=== PATIENT | female | born 2000 | race Two or more races ===

== ENCOUNTER 2020-03-04 21:24 | Emergency (ER) | payer MEDICAID ==
[~2020-03-04] VITALS: Ht 154.9 cm; Wt 121.1 kg
[2020-03-05 02:15] VITALS: BP 160/74
[2020-03-05] MEDS ORDERED: NEOMYCIN-BACITRACIN-POLYM 15GM TOP OINT TOP SCH (02:15)
[2020-03-05] MEDS ORDERED: CLINDAMYCIN 600 MG/4 ML VL IM ONE (02:30)
[2020-03-05] MEDS ORDERED: KETOROLAC TROMETH 60MG/2ML VIAL IM ONE (02:30)
== END 2020-03-05 03:33 | disposition home or self-care (01) ==
LOC: ER 21:24
DX: S61.432A Puncture wound without foreign body of left hand, initial encounter (principal); J45.909 Unspecified asthma, uncomplicated; Z88.0 Allergy status to penicillin; Z88.6 Allergy status to analgesic agent; W54.0XXA Bitten by dog, initial encounter; Y93.89 Activity, other specified; Y92.89 Other specified places as the place of occurrence of the external cause; Y99.8 Other external cause status
CPT/HCPCS: 96372; 99284; J1885; 90471

== ENCOUNTER 2024-05-08 17:35 | Emergency (ER) | payer MEDICAID ==
[~2024-05-08] VITALS: Ht 160 cm; Wt 136.4 kg
--- NOTE | 2024-05-08 20:52 | ED.PDOC ---
History of Present Illness HPI Comments 23 y/o F is BIBA for c/o abdominal pain, nausea, vomiting, diarrhea, and constipation, today. Patient comments on pain being in her RLQ and non- radiating. She denies any additional relevant or pertinent Hx in along with additional symptoms at this time. Chief Complaint: Abdominal Pain Time Seen by MD: 19:50 Reviewed Notes: Nurses Notes, Heel Cementer Notes, Medications, Allergies Allergies: Coded Allergies: Aspirin (Verified Allergy, Unknown, 03/04/20) Penicillins (Verified Allergy, Unknown, 03/04/20) Information Source: Patient, Emergency Med Personnel Mode of Arrival: EMS Past Medical History PAST MEDICAL HISTORY: Asthma Past Medical History (Other): morbid obesity Surgical History: Cholecystectomy, Tonsillectomy Family History Family History: Reviewed,noncontributory to illness, No family hx of Cancer, No family hx of DM, No family hx of Heart carmine, No family hx of HTN, No family hx ofKidney carmine, No family hx of Liver carmine, No family hx of Lung carmine, No family hx of Stroke Social History Smoker: Non-Smoker Alcohol: Denies ETOH Use Drugs: Marijuana Lives In: Home Gastrointestinal: reports: abdominal pain, constipated, diarrhea, nausea, vomiting All Other Systems: Reviewed and Negative (negative unless otherwise stated above or in HPI) Physical Exam General Appearance: Moderate Distress, Obese HEENT: Normal ENT Inspection, Pharynx Normal, TMs Normal Neck: Full Range of Motion, Non-Tender, Normal, Normal Inspection Respiratory: Chest Non-Tender, Lungs Clear, No Accessory Muscle Use, No Respiratory Distress, Normal Breath Sounds Cardiovascular: No Edema, No JVD, No Murmur, No Gallop, Normal Peripheral Pulses, Regular Rate/Rhythm Breast Exam: Deferred Gastrointestinal: No Organomegaly, No Pulsatile Mass, Normal Bowel Sounds, RLQ (tenderness), Soft, Tenderness (RLQ) Genitalia: Deferred Pelvic: Deferred Rectal: Deferred Extremities: No calf tenderness, Normal capillary refill, Normal inspection, Normal range of motion, Non-tender, No pedal edema Musculoskeletal : Apperance: Normal Neurologic: Alert, rehabilitation attendant II-XII nml as Tested, No Motor Deficits, Normal Affect, Normal Mood, No Sensory Deficits Cerebellar Function: Normal Reflexes: Normal Skin: Dry, Normal Color, Warm Lymphatic: No Adenopathy Was a procedure done? Was a procedure done?: No Differential Dx Considerations may include: acute abdomen, gastritis, gastroenteritis, appendicitis, diverticulitis X-Ray, Labs, Meds, VS Vital Signs Date Time Temp Pulse Resp B/P (MAP) Pulse Ox O2 Delivery O2 Flow Rate FiO2 05/08/24 17:41 98.4 98 20 127/84 (98) 99 05/08/24 17:36 96 Lab Test 05/08/24 20:15 Range/Units Urine Color Light-yellow Yellow Urine Clarity Turbid H Clear Urine pH 5.5 5.0-9.0 Urine Specific [place] 1.010 1.001-1.035 Urine Protein Negative Negative Urine Ketones 1+ H Negative Urine Blood Negative Negative /uL Urine Nitrite Negative Negative Urine Bilirubin Negative Negative Urine Urobilinogen Normal Negative mg/dL Urine Leukocyte Esterase Negative Negative /uL Urine RBC 1 0 - 4 /hpf Urine WBC 8 0 - 5 /hpf Urine Squamous Epithelial Cells Few <5 /hpf Urine Bacteria Mod H None Seen /hpf Urine Mucus Few None Seen Urine Glucose Normal Normal mg/dL Urine Test Negative Negative Is normal. Urine is normal. [place] [address] Ph: [phone] DIAGNOSTIC IMAGING Diagnostic Imaging Report : [id number] Signed PATIENT: LORETTA MENDIETA ACCT: [id number] UNIT: [id number] : 2000 LOC: ER ROOM / BED: / AGE / SEX: 23 / F ADM STATUS: REG ER SERVICE 51 ORDERING PHYSICIAN: TICO MIRAMONTES MD PROCEDURE(s): ABPL - CT AB PEL WO CON-NO ORAL OR IV REASON: 04-25-25 ORDER NUMBER(s): [id number], ACCESSION NUMBER(s): [id number] Exam: CT CT AB PEL WO CON-NO ORAL OR IV History: 04-25-25 Comparison Study: None available at time of dictation. TECHNIQUE: Multidetector CT of the abdomen was performed from lung bases to pubic symphysis. Imaging was performed without IV contrast. Axial, coronal and sagittal multiplanar reformats were obtained from the axial data set by the technologist. Radiation Dose Information: CT Dose: CTDI volume is 27.88 mGy. Dose-length product is 1477.04 mGy*cm FINDINGS: Evaluation of solid organs is limited due to lack of intravenous contrast use. Findings: Lung Bases: No acute or significant lung base finding. Normal heart size. No pleural or pericardial effusion. Liver: The liver is normal in size. No focal lesions. Gallbladder and Biliary Tree: Gallbladder has been surgically removed Spleen: Unremarkable Pancreas: The pancreas is grossly normal in appearance. Adrenal Glands: Unremarkable Kidneys: Kidneys are grossly normal without calculi or hydronephrosis. Bladder: Grossly unremarkable for degree of distention. Bowel: The stomach is grossly normal in appearance. Small bowel and colon are normal in caliber and distribution. The appendix is not visualized; however, no secondary findings of acute appendicitis identified. Ascites: Absent Lymphadenopathy: No mesenteric, retroperitoneal or periportal lymphadenopathy. Abdominal Wall and Mesentery: 4.8 x 2.2 cm fat containing ventral hernia Vasculature: The visualized abdominal aorta is normal in size and caliber. Evaluation of abdominal and pelvic vessels is limited due to lack of intravenous contrast. Pelvic Organs: Unremarkable Musculoskeletal: No aggressive focal bony lesions, acute fractures or dislocation. Soft tissues: Unremarkable IMPRESSION: 1. No free air or free fluid 2. Gallbladder has been surgically removed. 3. No findings of bowel obstruction 4. Radiation optimization: All CT scans at this facility use at least one of these dose optimization techniques: automated exposure control mA and/or kV adjustment per patient size (includes targeted exams where dose is matched to clinical indication) or iterative reconstruction. ATED BY: KORI JOHNSON Jr., DO DICTATED DATE/TIME: 05/08/242208 SIGNED BY: KORI JOHNSON Jr., SIGNED DATE/TIME: 05/08/242208 CC: Time of 1ST Reevaluation: 20:10 Reevaluation 1ST: Unchanged Patient Education/Counseling: Diagnosis, Treatment Family Education/Counseling: No Family Present Departure 1 Departure Time of Disposition: 23:56 Impression: Primary Impression: Abdominal pain Qualified Codes: R10.84 - Generalized abdominal pain Disposition: HOME / SELF CARE / HOMELESS Condition: Stable Additional Instructions: Reassessed patient, vital signs stable. Denies any new symptoms. Patient is able to tolerate PO and ambulate/be mobile at their baseline without concern. Risks and benefits of all medications given or prescribed, if any, discussed. All lab work, imaging and diagnostic studies were reviewed by me. The patient was counseled extensively on my clinical impression, diagnosis, expected course of the disease, and plan, including their follow-up care. Will discharge patient. Patient instructed to follow up with Primary Care Physician within 24-48 hours. Strict return precautions given for further exacerbation of symptoms or for new symptoms. The patient was given the opportunity to ask questions and all questions were answered by myself and the nursing/tech staff. Patient is in agreement with the care plan. The patient verbally expressed understanding of the discharge instructions, including the reasons to return to the Emergency Department. Discharged With: Self Critical Care Note Critical Care Time?: No Stability Stability form required: No Heart Score Heart Score: Heart Score Response (Comments) Value History N/A 0 EKG N/A 0 Age N/A 0 Risk Factors N/A 0 Troponin N/A 0 Total 0 I personally scribed for TICO MIRAMONTES MD ([email or web address]) on 05/08/24 at 20:52. Elec tronically submitted by Hugo Lackey ([email or web address]). TICO MIRAMONTES MD May 08, 2024 20:52
[2024-05-08 21:43] LABS: Urine Bacteria MOD /hpf (None Seen); Urine Blood Negative /uL (Negative); Urine Clarity Turbid (Clear); Urine Color Light-Yellow (Yellow); Urine Mucus FEW (None Seen); Urine Protein, UAD Negative (Negative); Urine Squamous Epithelial Cell FEW /hpf (<5); Urine Urobilinogen Normal (Negative); Urine WBC 8 /hpf (0 - 5); Urine pH 5.5 (5.0-9.0)
--- NOTE | 2024-05-08 22:12 | DVH ---
Exam: CT CT AB PEL WO CON-NO ORAL OR IV History: 04-25-25 Comparison Study: None available at time of dictation. TECHNIQUE: Multidetector CT of the abdomen was performed from lung bases to pubic symphysis. Imaging was performed without IV contrast. Axial, coronal and sagittal multiplanar reformats were obtained fr om the axial data set by the technologist. Radiation Dose Information: CT Dose: CTDI volume is 27.88 mGy. Dose-length product is 1477.04 mGy*cm FINDINGS: Evaluation of solid organs is limited due to lack of intravenous contrast use. Findings: Lung Bases: No acute or significant lung base finding. Normal heart size. No pleural or pericardial effusion. Liver: The liver is normal in size. No focal lesions. Gallbladder and Biliary Tree: Gallbladder has been surgically removed Spleen: Unremarkable Pancreas: The pancreas is grossly normal in appearance. Adrenal Glands: Unremarkable Kidneys: Kidneys are grossly normal without calculi or hydronephrosis. Bladder: Grossly unremarkable for degree of distention. Bowel: The stomach is grossly normal in appearance. Small bowel and colon are normal in caliber and d istribution. The appendix is not visualized; however, no secondary findings of acute appendicitis id entified. Ascites: Absent Lymphadenopathy: No mesenteric, retroperitoneal or periportal lymphadenopathy. Abdominal Wall and Mesentery: 4.8 x 2.2 cm fat containing ventral hernia Vasculature: The visualized abdominal aorta is normal in size and caliber. Evaluation of abdominal a nd pelvic vessels is limited due to lack of intravenous contrast. Pelvic Organs: Unremarkable Musculoskeletal: No aggressive focal bony lesions, acute fractures or dislocation. Soft tissues: Unremarkable IMPRESSION: 1. No free air or free fluid 2. Gallbladder has been surgically removed. 3. No findings of bowel obstruction 4. Radiation optimization: All CT scans at this facility use at least one of these dose optimization te chniques: automated exposure control mA and/or kV adjustment per patient size (includes targeted exa ms where dose is matched to clinical indication) or iterative reconstruction.
[2024-05-09 00:58] VITALS: BP 140/103; PULSE 108; RESP 18; TEMP 98.1; O2SAT 98
[2024-05-09] MEDS: ONDANSETRON ODT 4 MG TAB PO ONE (01:05)
--- NOTE | 2024-05-09 09:34 | ECG ---
[facility] Test Date: 2024-05-08 Test Time: 17:36:21 Pat Name: LORETTA MENDIETA Department: ER Room: Gender: F Shade Matcher: MAGEN : 2000 Requested By: TICO MIRAMONTES Order Number: [id number] Reading MD: Joesph Lazo Measurements Intervals [place] Rate: 96 P: 51 AK: 156 QRS: -15 QRSD: 97 T: 4 QT: 365 QTc: 462 Interpretive Statements Sinus rhythm Borderline left axis deviation Electronically Signed On 05-10-2024 10:20:46 PST by Joesph Lazo Please click the below link to view image of tracing.
== END 2024-05-09 01:15 | disposition home or self-care (01) ==
LOC: EDBD 17:35 → ER 17:35
DX: R10.31 Right lower quadrant pain (principal); J45.909 Unspecified asthma, uncomplicated; E66.01 Morbid (severe) obesity due to excess calories; K59.00 Constipation, unspecified; F12.10 Cannabis abuse, uncomplicated; Z88.0 Allergy status to penicillin; Z88.6 Allergy status to analgesic agent; Z32.02 Encounter for pregnancy test, result negative; Z90.49 Acquired absence of other specified parts of digestive tract; Z90.89 Acquired absence of other organs; Z68.43 Body mass index [BMI] 50.0-59.9, adult
CPT/HCPCS: 74176; 81001; 81025; 93005; 99284; Q0162

== ENCOUNTER 2024-05-09 16:58 | Inpatient (IN) | payer MEDICAID ==
[~2024-05-09] VITALS: Ht 157.5 cm; Wt 168.0 kg
--- NOTE | 2024-05-09 18:24 | ED.PDOC ---
GI ASSESSMENT HPI Comments HPI: Poor Historian. 23-year-old female presents to emergency department for evaluation of epigastric right upper quadrant pain for the last nine days with the associated nausea and vomiting nonbilious nonbloody however the last few days there was coffee-ground emesis and then today there was bright red blood on her vomit. Patient was seen and evaluated here yesterday and had some CT scan without contrast and was discharged home. Patient returns again for worsening symptoms. Pain is worse with food. Past Medcial History: Morbid obesity, asthma, Past Surgical History: Cholecystectomy, left wrist surgery, right foot surgery, Allergies to Advil and penicillin REVIEW OF SYSTEMS: CONSTITUTIONAL: Denies acute: fever, diaphoresis, chills, HEAD: Denies acute: headache, photophobia Eyes: Denies acute: Double vision, vision loss, eye pain, eye discharge. EARS: Denies acute: tinnitus, hearing loss, ear discharge, ear pain, THROAT: Denies acute: sore throat, swelling, difficulty swallowing , pain with swallowing, change in voice. NECK: Denies acute: neck pain, neck swelling, stiff neck. HEART: Denies acute : chest pain, palpitations, LUNGS: Denies acute: SOB, wheezing, cough, hemoptysis ABDOMEN: Denies acute: diarrhea, melena hematochezia SKIN: Denies acute: rash, redness, lesions, itchiness. EXTREMITIES: Denies acute: calf pain, numbness, tingling, weakness, denies pain in extremity. Denies acute: Low back pain. Neuro: Denies acute: focal neurological deficit, motor or sensory focal neurological deficit, tremors, seizure like activity, confusion, dizziness, change in mental status, loss of bowel or bladder function, cauda equina like symptoms. : Denies acute: dysuria, hematuria, flank pain, increase in urinary frequency. PSYCH: Denies acute: hallucination, suicidal ideation, homicidal ideation. FEMALE: Denies acute: abnormal vaginal bleeding, foul odor, unusual discharge. PHYSICAL EXAM: General: no acute distress, awake and alert. Head: normocephalic, atraumatic. Neck: supple, trachea is midline, no swelling. Throat: Normal phonation. Eyes:, no erythema, no purulent discharge, no proptosis, no icterus. Heart: regular rate, regular rhythm, no significant murmur appreciated. Lungs: no apparent respiratory distress, Able to speak in full sentences. No wheezing, no rhonchi, no crackles. No stridors Clear to auscultation bilaterally. Abdomen: Epigastric and right upper quadrant tender to palpation, non distended, soft, no guarding, no rebound, + bowel sounds. Neuro: Awake, Alert, oriented to name, self, situation, follows commands GCS=15. Speech is normal. Skin: no petechia, no purpura, no cyanosis, non-pale, not jaundice. Lower extremities: --trace bilateral - Pitting edema no deformity, no focal swelling, no calf TTP. Makes eye contact. moves all four extremities. Face: no apparent facial droop. Chief Complaint: Abdominal Pain Time Seen by MD: 17:02 Primary Care Provider: KIERRA Zabala Notes: Nurses Notes, Allergies Allergies: Coded Allergies: Aspirin (Verified Allergy, Unknown, 03/04/20) Penicillins (Verified Allergy, Unknown, 03/04/20) Information Source: Patient Mode of Arrival: Ambulatory Past Medical History PAST MEDICAL HISTORY: Asthma Surgical History: Cholecystectomy, Tonsillectomy Family History Family History: Reviewed,noncontributory to illness, No family hx of Cancer, No family hx of DM, No family hx of Heart carmine, No family hx of HTN, No family hx ofKidney carmine, No family hx of Liver carmine, No family hx of Lung carmine, No family hx of Stroke Social History Smoker: Non-Smoker Alcohol: Denies ETOH Use Drugs: Marijuana Lives In: Home Was a procedure done? Was a procedure done?: No X-Ray, Labs, Meds, VS Vital Signs Date Time Temp Pulse Resp B/P (MAP) Pulse Ox O2 Delivery O2 Flow Rate FiO2 05/09/24 20:28 117 18 146/71 (96) 98 05/09/24 17:56 97.0 102 16 132/101 (111) 99 Lab Test 05/09/24 18:11 05/09/24 18:08 Range/Units Urine Color Yellow Yellow Urine Clarity Turbid H Clear Urine pH 6.0 5.0-9.0 Urine Specific [place] 1.017 1.001-1.035 Urine Protein 1+ H Negative Urine Ketones 1+ H Negative Urine Blood Negative Negative /uL Urine Nitrite Negative Negative Urine Bilirubin Negative Negative Urine Urobilinogen Normal Negative mg/dL Urine Leukocyte Esterase 1+ Negative /uL Urine RBC 3 0 - 4 /hpf Urine WBC 17 0 - 5 /hpf Urine Squamous Epithelial Cells Mod <5 /hpf Urine Bacteria Few H None Seen /hpf Urine Hyaline Casts Few 0 - 2 /lpf Urine Mucus Few None Seen Urine Glucose Normal Normal mg/dL Urine Test Negative Negative White Blood Count 12.4 H 4.4-10.8 10^3/uL Red Blood Count 5.84 H 4.0-5.20 10^6/uL Hemoglobin 13.9 12.2-16.2 g/dL Hematocrit 44.0 36.0-46.0 % Mean Corpuscular Volume 75.3 L 80.0-100.0 fL Mean Corpuscular Hemoglobin 23.8 L 28.0-32.0 pg Mean Corpuscular Hemoglobin Concent 31.7 L 32.0-36.0 g/dL Red Cell Distribution Width 17.3 H 11.8-14.3 % Platelet Count 508 H 140-450 10^3/uL Mean Platelet Volume 8.1 6.9-10.8 fL Neutrophils (%) (Auto) 59.9 37.0-80.0 % Lymphocytes (%) (Auto) 33.5 10.0-50.0 % Monocytes (%) (Auto) 5.9 0.0-12.0 % Eosinophils (%) (Auto) 0.2 0.0-7.0 % Basophils (%) (Auto) 0.5 0.0-2.0 % Neutrophils # (Auto) 7.4 1.6-8.6 10 ^3/uL Lymphocytes # (Auto) 4.2 0.4-5.4 10 ^3/uL Monocytes # (Auto) 0.7 0-1.3 10 ^3/uL Eosinophils # (Auto) 0 0-0.8 10 ^3/uL Basophils # (Auto) 0.1 0-0.2 10 ^3/uL Nucleated Red Blood Cells 0.1 % Sodium Level 136 136-145 mmol/L Potassium Level 2.9 L 3.5-5.1 mmol/L Chloride Level 96 L 98-107 mmol/L Carbon Dioxide Level 27 20-31 mmol/L Anion Gap 13 5-15 Blood Urea Nitrogen < 5 L 9-23 mg/dL Creatinine 0.67 0.550-1.02 mg/dL Glomerular Filtration Rate Calc 124 >90 mL/min BUN/Creatinine Ratio 7.5 L 10.0-20.0 Serum Glucose 102 74-106 mg/dL Hemoglobin A1c Pending Lactic Acid Level 1.6 0.4-2.0 mmol/L Calcium Level 10.3 8.7-10.4 mg/dL Total Bilirubin 0.6 0.2-1.0 mg/dL Aspartate Amino Transferase (AST) 29 13-40 U/L Alanine Aminotransferase (ALT) 43 H 7-40 U/L Alkaline Phosphatase 87 46-116 U/L Troponin I High Sensitivity < 3 L </=34 ng/L Total Protein 8.2 5.7-8.2 g/dL Albumin 4.9 H 3.2-4.8 g/dL Lipase 33 12-53 U/L Thyroid Stimulating Hormone (TSH) 2.13 0.55-4.78 uIU/mL [place] [address] Ph: [phone] DIAGNOSTIC IMAGING Diagnostic Imaging Report : [id number] Signed PATIENT: LORETTA MENDIETA ACCT: [id number] UNIT: [id number] : 2000 LOC: OVERFLOW ROOM / BED: [address] [place] [address] AGE / SEX: 23 / F ADM STATUS: ADM IN SERVICE 22 ORDERING PHYSICIAN: MORIAH HOGAN DO PROCEDURE(s): CXRP - CHEST PORTABLE REASON: abd pain ORDER NUMBER(s): [id number], ACCESSION NUMBER(s): [id number] EXAMINATION: AP portable chest radiograph CLINICAL HISTORY: abd pain COMPARISON: None FINDINGS: Underpenetration secondary to patient body habitus. No dominant consolidations. No definite pleural effusions or pneumothorax. The cardiomediastinal silhouette appears within normal limits given technique. IMPRESSION: No acute cardiopulmonary findings as visualized. ATED BY: SAÚL AQUINO MD DICTATED DATE/TIME: 05/09/242152 SIGNED BY: SAÚL AQUINO MD SIGNED DATE/TIME: 05/09/242152 CC: [place] [address] Ph: [phone] DIAGNOSTIC IMAGING Diagnostic Imaging Report : [id number] Signed PATIENT: LORETTA MENDIETA ACCT: [id number] UNIT: [id number] : 2000 LOC: ER ROOM / BED: / AGE / SEX: 23 / F ADM STATUS: REG ER SERVICE 1723 ORDERING PHYSICIAN: MORIAH HOGAN DO PROCEDURE(s): ABPLIV - CT AB PEL WITH IV CON ONLY REASON: abd pain ORDER NUMBER(s): [id number], ACCESSION NUMBER(s): [id number] Exam: CT CT AB PEL WITH IV CON ONLY History: abd pain Comparison Study: None available at time of dictation. Contrast: Type of contrast: Omnipaque 300 Contrast injected: 70 mL Contrast wasted: 0 TECHNIQUE: A digital clarity specialists image was obtained. During the uneventful, intravenous administration of contrast material, multislice data acquisition was obtained through the abdomen and pelvis. The data set was subsequently reconstructed into axial images. Images were reviewed on a work station using a combination of axial and multiplanar using a variety of window levels and settings. Radiation Dose Information: CT Dose: CTDI volume is 27.88 mGy. Dose-length product is 1606.41 mGy*cm FINDINGS: Lung Bases: No acute or significant lung base finding. Normal heart size. No pleural or pericardial effusion. Liver: The liver is normal in size. No focal lesions. Normal hepatic vascular enhancement. Gallbladder and Biliary Tree: Gallbladder has been surgically removed. Spleen: Unremarkable Pancreas: The pancreas is normal in appearance without focal lesions or abnormal enhancement. Adrenal Glands: Unremarkable Kidneys: Kidneys demonstrate normal symmetric enhancement without focal lesions, calculi or hydronephrosis. Bladder: Unremarkable Bowel: The stomach is grossly normal in appearance. Mucosal thickening throughout the descending colon can not exclude segmental colitis.. The appendix is not visualized; however, no secondary findings of acute appendicitis identified. Ascites: Absent Lymphadenopathy: No mesenteric, retroperitoneal or periportal lymphadenopathy. Abdominal Wall and Mesentery: Small ventral hernia containing fat (5.2 x 2.1 cm) Vasculature: The visualized abdominal aorta is normal in size and caliber. Abdominal and pelvic vessels demonstrate normal enhancement. Pelvic Organs: Unremarkable Musculoskeletal: No aggressive focal bony lesions, acute fractures or dislocation. Soft tissues: Unremarkable. IMPRESSION: 1. Mucosal thickening throughout the left colon may represent segmental colitis consider follow-up 2. No free air or free fluid. 3. Gallbladder has been surgically removed. 4. No nephrolithiasis or hydronephrosis. All CT scans at this medical facility are performed using dose modulation techniques as appropriate to a performed exam including the following: Automated exposure control was utilized; adjustment of the MA and/or KV according to patient size; and use of iterative reconstruction technique. ATED BY: KORI JOHNSON Jr., DO DICTATED DATE/TIME: 05/09/241949 SIGNED BY: KORI JOHNSON Jr., SIGNED DATE/TIME: 05/09/241949 CC: Patient Education/Counseling: Diagnosis, Treatment Family Education/Counseling: No Family Present Departure 1 Departure Time of Disposition: 19:46 Impression: Primary Impression: Abdominal pain Additional Impressions: Hematemesis UTI (urinary tract infection) Hypokalemia Disposition: ADMITTED INPATIENT Admit to: Tele Condition: Guarded Discharged With: Self Critical Care Note Critical Care Time?: No I personally scribed for MORIAH HOGAN DO ([email or web address]) on 05/09/24 at 22:18. Electronically submitted by Gege Sierra ([email or web address]). MORIAH HOGAN DO May 09, 2024 18:24
[2024-05-09] MEDS ORDERED: ONDANSETRON HCL 4 MG/2 ML VIAL IV ONE (18:30)
[2024-05-09 18:43] LABS: Basophils # (auto) 0.1 10 ^3/uL (0-0.2); Eosinophils # (auto) 0 10 ^3/uL (0-0.8); Lymphocytes # (auto) 4.2 10 ^3/uL (0.4-5.4); Monocytes # (auto) 0.7 10 ^3/uL (0-1.3); Neutrophils # (auto) 7.4 10 ^3/uL (1.6-8.6); Nucleated Red Blood Cells % 0.1 %; White Blood Cell 12.4 10^3/uL (4.4-10.8)
[2024-05-09 18:45] LABS: Basophils % (auto) 0.5 % (0.0-2.0); Eosinophils % (auto) 0.2 % (0.0-7.0); Hemoglobin 13.9 g/dL (12.2-16.2); Lymphocytes % (auto) 33.5 % (10.0-50.0); Mean Corpuscular Hemoglobin 23.8 pg (28.0-32.0); Mean Corpuscular Hgb Conc. 31.7 g/dL (32.0-36.0); Mean Corpuscular Volume 75.3 fL (80.0-100.0); Monocytes % (auto) 5.9 % (0.0-12.0); Neutrophils % (auto) 59.9 % (37.0-80.0); Platelet Count (auto) 508 10^3/uL (140-450); Red Blood Cells 5.84 10^6/uL (4.0-5.20); Red Cell Distribution Width 17.3 % (11.8-14.3)
[2024-05-09 18:59] LABS: Alanine Aminotransferase 43 U/L (7-40); Albumin 4.9 g/dL (3.2-4.8); Alkaline Phosphatase 87 U/L (46-116); Anion Gap 13 (5-15); Aspartate Aminotransferase 29 U/L (13-40); BUN/Creatinine Ratio 7.5 (10.0-20.0); Bilirubin, Total 0.6 mg/dL (0.2-1.0); Blood Urea Nitrogen < 5 mg/dL (9-23); Calcium 10.3 mg/dL (8.7-10.4); Carbon Dioxide 27 mmol/L (20-31); Chloride 96 mmol/L (98-107); Glucose 102 mg/dL (74-106); Potassium 2.9 mmol/L (3.5-5.1); Sodium 136 mmol/L (136-145); Total Protein 8.2 g/dL (5.7-8.2)
[2024-05-09 19:06] LABS: Urine Bacteria FEW /hpf (None Seen); Urine Blood Negative /uL (Negative); Urine Clarity Turbid (Clear); Urine Color Yellow (Yellow); Urine Hyaline Cast FEW /lpf (0 - 2); Urine Mucus FEW (None Seen); Urine Protein, UAD 1+ (Negative); Urine Specific Gravity 1.017 (1.001-1.035); Urine Squamous Epithelial Cell MOD /hpf (<5); Urine Urobilinogen Normal (Negative); Urine WBC 17 /hpf (0 - 5)
[2024-05-09] MEDS ORDERED: IOHEXOL 300 MG/ML 100ML BOTTLE IJ ONE (19:17)
[2024-05-09 19:20] LABS: Lipase 33 U/L (12-53)
[2024-05-09] MEDS ORDERED: levoFLOXacin 250 MG TAB PO ONE (19:45)
--- NOTE | 2024-05-09 19:53 | DVH ---
Exam: CT CT AB PEL WITH IV CON ONLY History: abd pain Comparison Study: None available at time of dictation. Contrast: Type of contrast: Omnipaque 300 Contrast injected: 70 mL Contrast wasted: 0 TECHNIQUE: A digital home assessment nurse image was obtained. During the uneventful, intravenous administration of c ontrast material, multislice data acquisition was obtained through the abdomen and pelvis. The data s et was subsequently reconstructed into axial images. Images were reviewed on a work station using a c ombination of axial and multiplanar using a variety of window levels and settings. Radiation Dose Information: CT Dose: CTDI volume is 27.88 mGy. Dose-length product is 1606.41 mGy*cm FINDINGS: Lung Bases: No acute or significant lung base finding. Normal heart size. No pleural or pericardial effusion. Liver: The liver is normal in size. No focal lesions. Normal hepatic vascular enhancement. Gallbladder and Biliary Tree: Gallbladder has been surgically removed. Spleen: Unremarkable Pancreas: The pancreas is normal in appearance without focal lesions or abnormal enhancement. Adrenal Glands: Unremarkable Kidneys: Kidneys demonstrate normal symmetric enhancement without focal lesions, calculi or hydroneph rosis. Bladder: Unremarkable Bowel: The stomach is grossly normal in appearance. Mucosal thickening throughout the descending colo n can not exclude segmental colitis.. The appendix is not visualized; however, no secondary findings of acute appendicitis identified. Ascites: Absent Lymphadenopathy: No mesenteric, retroperitoneal or periportal lymphadenopathy. Abdominal Wall and Mesentery: Small ventral hernia containing fat (5.2 x 2.1 cm) Vasculature: The visualized abdominal aorta is normal in size and caliber. Abdominal and pelvic vess els demonstrate normal enhancement. Pelvic Organs: Unremarkable Musculoskeletal: No aggressive focal bony lesions, acute fractures or dislocation. Soft tissues: Unremarkable. IMPRESSION: 1. Mucosal thickening throughout the left colon may represent segmental colitis consider follow-up 2. No free air or free fluid. 3. Gallbladder has been surgically removed. 4. No nephrolithiasis or hydronephrosis. All CT scans at this medical facility are performed using dose modulation techniques as appropriate t o a performed exam including the following: Automated exposure control was utilized; adjustment of th e MA and/or KV according to patient size; and use of iterative reconstruction technique.
--- NOTE | 2024-05-09 20:57 | DVHHPRES ---
History of Present Illness Resident Creating Document: WILBER TAPIA RESIDENT History of Present Illness This is a 23 years old female with past medical history of bronchial asthma presented to the ED with a chief complaint of intractable abdominal pain and vomiting for last 9 days prior to this admission. The patient states that abdominal pain started 9 days ago mostly in the epigastric and right subcostal region, 9/10 constant, colicky in nature and radiates to the right shoulder and back and associated with vomiting and she was not able to put anything down the throat. The patient also complains of few episodes of coffee-ground emesis and fresh blood and also few episodes of diarrhea for last 2 days. She had history of cholecystectomy few years ago. The patient denies any flu-like illness, eating outside the home, dizziness, chest pain, fever, dysuria, hematuria, hematochezia or any sick contact. PCP: Dr. Pierson Past Medical History Bronchial asthma Past Surgical History Cholecystectomy, Lt wrist and rt foot surgery. Family History Hypertension and history of colon cancer in the maternal side of the family Past Social History Lives with family Nonsmoker, nonalcoholic and never tried any drugs Review of Systems Constitutional: No: Fever, Chills, Sweats, Weakness, Malaise, Other Eyes: No: Pain, Vision change, Conjunctivae inflammation, Eyelid inflammation, Other, Redness ENT: No: Ear pain, Ear discharge, Nose pain, Nose discharge, Nose congestion, Mouth pain, Mouth swelling, Throat pain, Throat swelling, Other Respiratory: No: Cough, Dry, Shortness of breath, SOB with excertion, Wheezing, Hemoptysis, Pleuritic Pain, Sputum, Wheezing, Other Cardiovascular: Lt Headedness; No: Chest Pain, Palpitations, Orthopnea, Paroxysmal Noc. Dyspnea, Edema, Other Gastrointestinal: Nausea, Vomiting, Abdominal Pain, Diarrhea; No: Constipation, Melena, Hematochezia, Other Genitourinary: No Dysuria, No Frequency, No Incontinence, No Hematuria, No Retention, No Other Musculoskeletal: No: other, neck pain, shoulder pain, arm pain, back pain, hand pain, leg pain, foot pain Skin: No: Rash, Lesions, Jaundice, Bruising, Other Neurological: No: Weakness, Numbness, Incoordination, Change in speech, Confusion, Seizures, Other Allergies: Coded Allergies: Aspirin (Verified Allergy, Unknown, 03/04/20) Penicillins (Verified Allergy, Unknown, 03/04/20) Exam Vital Signs Vital Signs Date Time Temp Pulse Resp B/P (MAP) Pulse Ox O2 Delivery O2 Flow Rate FiO2 05/09/24 20:28 117 18 146/71 (96) 98 05/09/24 17:56 97.0 Exam Physical examination: General Appearance: Alert, Oriented X3, Cooperative, mild distress HEENT: Atraumatic, PERRLA, EOMI, Mucous membrane moist/pink Respiratory: Clear to auscultation, Normal air movement Cardiovascular: Regular rate, Normal S1, Normal S2, No murmurs, no chest wall tenderness Abdominal: Normal bowel sounds, Soft, mild tenderness in the epigastric and rt subcostal region, No hepatospenomegaly, No masses Extremities: No clubbing, No cyanosis, No edema, Normal pulses, No tenderness/swelling Skin: No rashes, No breakdown, No significant lesion Neuro: Normal speech, Strength at 5/5 X4 ext, Normal tone, Sensation intact, grossly intact cranial nerves. Psych/Mental Status: Mental status NL, Mood NL Labs/Xrays Labs Test 05/09/24 18:11 05/09/24 18:08 Range/Units Urine Color Yellow Yellow Urine Clarity Turbid H Clear Urine pH 6.0 5.0-9.0 Urine Specific [place] 1.017 1.001-1.035 Urine Protein 1+ H Negative Urine Ketones 1+ H Negative Urine Blood Negative Negative /uL Urine Nitrite Negative Negative Urine Bilirubin Negative Negative Urine Urobilinogen Normal Negative mg/dL Urine Leukocyte Esterase 1+ Negative /uL Urine RBC 3 0 - 4 /hpf Urine WBC 17 0 - 5 /hpf Urine Squamous Epithelial Cells Mod <5 /hpf Urine Bacteria Few H None Seen /hpf Urine Hyaline Casts Few 0 - 2 /lpf Urine Mucus Few None Seen Urine Glucose Normal Normal mg/dL Urine Test Negative Negative White Blood Count 12.4 H 4.4-10.8 10^3/uL Red Blood Count 5.84 H 4.0-5.20 10^6/uL Hemoglobin 13.9 12.2-16.2 g/dL Hematocrit 44.0 36.0-46.0 % Mean Corpuscular Volume 75.3 L 80.0-100.0 fL Mean Corpuscular Hemoglobin 23.8 L 28.0-32.0 pg Mean Corpuscular Hemoglobin Concent 31.7 L 32.0-36.0 g/dL Red Cell Distribution Width 17.3 H 11.8-14.3 % Platelet Count 508 H 140-450 10^3/uL Mean Platelet Volume 8.1 6.9-10.8 fL Neutrophils (%) (Auto) 59.9 37.0-80.0 % Lymphocytes (%) (Auto) 33.5 10.0-50.0 % Monocytes (%) (Auto) 5.9 0.0-12.0 % Eosinophils (%) (Auto) 0.2 0.0-7.0 % Basophils (%) (Auto) 0.5 0.0-2.0 % Neutrophils # (Auto) 7.4 1.6-8.6 10 ^3/uL Lymphocytes # (Auto) 4.2 0.4-5.4 10 ^3/uL Monocytes # (Auto) 0.7 0-1.3 10 ^3/uL Eosinophils # (Auto) 0 0-0.8 10 ^3/uL Basophils # (Auto) 0.1 0-0.2 10 ^3/uL Nucleated Red Blood Cells 0.1 % Sodium Level 136 136-145 mmol/L Potassium Level 2.9 L 3.5-5.1 mmol/L Chloride Level 96 L 98-107 mmol/L Carbon Dioxide Level 27 20-31 mmol/L Anion Gap 13 5-15 Blood Urea Nitrogen < 5 L 9-23 mg/dL Creatinine 0.67 0.550-1.02 mg/dL Glomerular Filtration Rate Calc 124 >90 mL/min BUN/Creatinine Ratio 7.5 L 10.0-20.0 Serum Glucose 102 74-106 mg/dL Lactic Acid Level 1.6 0.4-2.0 mmol/L Calcium Level 10.3 8.7-10.4 mg/dL Total Bilirubin 0.6 0.2-1.0 mg/dL Aspartate Amino Transferase (AST) 29 13-40 U/L Alanine Aminotransferase (ALT) 43 H 7-40 U/L Alkaline Phosphatase 87 46-116 U/L Troponin I High Sensitivity < 3 L </=34 ng/L Total Protein 8.2 5.7-8.2 g/dL Albumin 4.9 H 3.2-4.8 g/dL Lipase 33 12-53 U/L Assessment/Plan Assessment/Plan Assessment and plan: # Intractable abdominal pain and vomiting likely secondary to colitis # Coffee-ground emesis and 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 - IV ondansetron 4 mg Q 8 p.r.n. - CT abdomen pelvis revealed thickening throughout the left colon resembles segmental colitis. - IV ciprofloxacin 400 mg b.i.d. and IV metronidazole 500 mg t.i.d. - IV Protonix 40 mg daily - Ordered stool for occult blood ,stool bacterial culture and H/H # Hypokalemia - Replenished # Possible acute cystitis - Ordered urine bacterial culture - IV ciprofloxacin 400 mg b.i.d. # Morbid obesity ( BMI 52.8 kg/m2) # Prediabetic, HbA1C 5.9% - counseled patient regarding low carb diet, lifestyle modification and physical exercise # PUD prophylaxis - Patient is on Protonix # DVT prophylaxis - Not recommended Goal of care discussed with the patient for more than 20 minutes full code Plan discussed with Dr. Macedo Plan discussed with: Patient, Other Date of Service: May 09, 2024 Billing Provider: VAHE MACEDO MD Common Visit Codes: [id number] INP/OBS CARE (HIGH) WILBER TAPIA RESIDENT May 09, 2024 20:57 VAHE MACEDO MD May 10, 2024 17:47
[2024-05-09] MEDS ORDERED: ONDANSETRON HCL 4 MG/2 ML VIAL IV PRN (21:30)
[2024-05-09] MEDS: SODIUM CHLORIDE 0.9% 1,000 ML IV SCH (21:30)
--- NOTE | 2024-05-09 21:55 | DVH ---
EXAMINATION: AP portable chest radiograph CLINICAL HISTORY: abd pain COMPARISON: None FINDINGS: Underpenetration secondary to patient body habitus. No dominant consolidations. No definite pleural effusions or pneumothorax. The cardiomediastinal si lhouette appears within normal limits given technique. IMPRESSION: No acute cardiopulmonary findings as visualized.
[2024-05-09] MEDS: CIPROFLOXACIN 400MG/200ML 200 ML IV SCH (22:00)
[2024-05-09 22:47] LABS: COVID19 ANTIGEN SOFIA FIA NEGATIVE (NEGATIVE)
[2024-05-09 22:48] LABS: Rapid Influenza A Negative (Negative); Rapid Influenza B Negative (Negative)
[2024-05-09] MEDS: SODIUM CHLORIDE 0.9% 1,000 ML IV ONE (23:16)
[2024-05-09 23:28] VITALS: BP 141/95; PULSE 96; RESP 16; TEMP 98.5; O2SAT 95
[2024-05-09] MEDS: POTASSIUM CHL 20 Meq TABLET PO ONE (23:59)
[2024-05-10] VITALS (8 sets, daily range): BP systolic 109–145; BP diastolic 62–92; PULSE 78–102; RESP 16–20; TEMP 97.7–98.3; O2SAT 94–97
[2024-05-10] MEDS: metroNIDAZOLE 500MG/100ML 100 ML IV SCH (00:02)
[2024-05-10 07:32] LABS: Basophils # (auto) 0 10 ^3/uL (0-0.2); Basophils % (auto) 0.4 % (0.0-2.0); Calcium 9.9 mg/dL (8.7-10.4); Eosinophils # (auto) 0 10 ^3/uL (0-0.8); Eosinophils % (auto) 0.3 % (0.0-7.0); Hemoglobin 12.8 g/dL (12.2-16.2); Lymphocytes # (auto) 4.5 10 ^3/uL (0.4-5.4); Lymphocytes % (auto) 38.2 % (10.0-50.0); Mean Corpuscular Volume 74.9 fL (80.0-100.0); Monocytes # (auto) 0.9 10 ^3/uL (0-1.3); Monocytes % (auto) 7.8 % (0.0-12.0); Neutrophils # (auto) 6.2 10 ^3/uL (1.6-8.6); Neutrophils % (auto) 53.3 % (37.0-80.0); Nucleated Red Blood Cells % 0.1 %; Platelet Count (auto) 437 10^3/uL (140-450); Red Blood Cells 5.34 10^6/uL (4.0-5.20); Red Cell Distribution Width 17.5 % (11.8-14.3); White Blood Cell 11.7 10^3/uL (4.4-10.8)
[2024-05-10 07:33] LABS: Anion Gap 14 (5-15); Carbon Dioxide 25 mmol/L (20-31); Chloride 96 mmol/L (98-107); Potassium 3.5 mmol/L (3.5-5.1); Sodium 135 mmol/L (136-145)
[2024-05-10 07:38] LABS: BUN/Creatinine Ratio 8.2 (10.0-20.0); Glucose 90 mg/dL (74-106)
[2024-05-10 07:47] LABS: Blood Urea Nitrogen 5 mg/dL (9-23)
[2024-05-10] MEDS ORDERED: levoFLOXacin 750MG 150 ML IV SCH (10:00)
[2024-05-10] MEDS ORDERED: PANTOPRAZOLE 40 MG/10 ML VIAL INJ IV SCH (10:00)
[2024-05-10 12:20] LABS: Amphetamine Screen, Urine Neg (NEGATIVE)
[2024-05-10 12:28] LABS: Barbiturate Scree,Urine Neg (NEGATIVE); Benzodiazephine Screen, Urine Neg (NEGATIVE); Cannabinoid Screen, Urine Pos (NEGATIVE); Cocaine Screen, Urine Neg (NEGATIVE); Opiate Scree,Urine Neg (NEGATIVE); Phencyclidine Screen, Urine Neg (NEGATIVE)
[2024-05-10] MEDS: MORPHINE SULFATE INJ 2 MG/ml SYRG IV PRN (13:51)
--- NOTE | 2024-05-10 14:20 | DVHINCON2 ---
GI Consult Consult Note GI consult note Date of Consultation: 05/10/2024 Chief Complaint: Chronic abdominal pain, nausea and vomiting, acute gastritis Referring Physician: Dr. gutierrez H&P: 23-year-old female presented to ER with intractable abdominal pain Patient started with abdominal pain in periumbilical area, radiating to epigast faizan area, and right upper quadrant to right back, for the past 10 days Patient has nausea vomiting, was mostly yellow, but five days ago was coffee- ground emesis, one day ago with slight red blood streaks. Patient also feels like food is stuck in her throat for the past two weeks last bowel movement four days ago, loose loose stool. No melena or red blood in stool Patient has history of GERD No EGD in past. Denies use of NSAIDs. Denies use of marijuana Past Medical History: Bronchial asthma Past Surgical History: Cholecystectomy, Lt wrist and rt foot surgery. Social History: NO smoking, drinking ETOH and use of illegal drugs. Family History: Noncontributory Review of Systems: Constitutional: no fever, chill, weight loss HEENT: no eye pain, no hearing loss, no oral lesion, no scleral icterus Heart: no chest pain, no chest pressure Lung: no cough, no dyspnea with exertion Abdomen: see HPI Exam General: Patient is alert and oriented NAD Respiratory: Clear to auscultation Cardio regular rhythm and rate Abdomen moderate periumbilical and epigastric tenderness, positive BS Labs: Labs Test 05/10/24 11:00 05/10/24 05:41 05/09/24 22:20 05/09/24 18:11 Range/Units Potassium Level 3.1 L 3.5-5.1 mmol/L White Blood Count 11.7 H 4.4-10.8 10^3/uL Red Blood Count 5.34 H 4.0-5.20 10^6/uL Hemoglobin 12.8 12.2-16.2 g/dL Hematocrit 40.0 36.0-46.0 % Mean Corpuscular Volume 74.9 L 80.0-100.0 fL Mean Corpuscular Hemoglobin 24.0 L 28.0-32.0 pg Mean Corpuscular Hemoglobin Concent 32.0 32.0-36.0 g/dL Red Cell Distribution Width 17.5 H 11.8-14.3 % Platelet Count 437 140-450 10^3/uL Mean Platelet Volume 8.1 6.9-10.8 fL Neutrophils (%) (Auto) 53.3 37.0-80.0 % Lymphocytes (%) (Auto) 38.2 10.0-50.0 % Monocytes (%) (Auto) 7.8 0.0-12.0 % Eosinophils (%) (Auto) 0.3 0.0-7.0 % Basophils (%) (Auto) 0.4 0.0-2.0 % Neutrophils # (Auto) 6.2 1.6-8.6 10 ^3/uL Lymphocytes # (Auto) 4.5 0.4-5.4 10 ^3/uL Monocytes # (Auto) 0.9 0-1.3 10 ^3/uL Eosinophils # (Auto) 0 0-0.8 10 ^3/uL Basophils # (Auto) 0 0-0.2 10 ^3/uL Nucleated Red Blood Cells 0.1 % Sodium Level 135 L 136-145 mmol/L Chloride Level 96 L 98-107 mmol/L Carbon Dioxide Level 25 20-31 mmol/L Anion Gap 14 5-15 Blood Urea Nitrogen 5 L 9-23 mg/dL Creatinine 0.61 0.550-1.02 mg/dL Glomerular Filtration Rate Calc 127 >90 mL/min BUN/Creatinine Ratio 8.2 L 10.0-20.0 Serum Glucose 90 74-106 mg/dL Calcium Level 9.9 8.7-10.4 mg/dL Magnesium Level 2.1 1.6-2.6 mg/dL Beta HCG, Quantitative 0.6 L 1.5-4.2 mIU/mL Influenza Type A Antigen Negative Negative Influenza Type B Antigen Negative Negative SARS-CoV-2 Antigen (Rapid) Negative NEGATIVE Urine Color Yellow Yellow Urine Clarity Turbid H Clear Urine pH 6.0 5.0-9.0 Urine Specific [place] 1.017 1.001-1.035 Urine Protein 1+ H Negative Urine Ketones 1+ H Negative Urine Blood Negative Negative /uL Urine Nitrite Negative Negative Urine Bilirubin Negative Negative Urine Urobilinogen Normal Negative mg/dL Urine Leukocyte Esterase 1+ Negative /uL Urine RBC 3 0 - 4 /hpf Urine WBC 17 0 - 5 /hpf Urine Squamous Epithelial Cells Mod <5 /hpf Urine Bacteria Few H None Seen /hpf Urine Hyaline Casts Few 0 - 2 /lpf Urine Mucus Few None Seen Urine Glucose Normal Normal mg/dL Urine Test Negative Negative Urine Opiates Screen Neg NEGATIVE Urine Fentanyl Screen Neg NEGATIVE Urine Barbiturates Screen Neg NEGATIVE Urine Phencyclidine Screen Neg NEGATIVE Urine Amphetamines Screen Neg NEGATIVE Urine Benzodiazepines Screen Neg NEGATIVE Urine Cocaine Screen Neg NEGATIVE Urine Cannabinoids Screen Pos NEGATIVE Test 05/09/24 18:08 Range/Units Hemoglobin A1c 5.9 H <5.7 % A1C Lactic Acid Level 1.6 0.4-2.0 mmol/L Total Bilirubin 0.6 0.2-1.0 mg/dL Aspartate Amino Transferase (AST) 29 13-40 U/L Alanine Aminotransferase (ALT) 43 H 7-40 U/L Alkaline Phosphatase 87 46-116 U/L Troponin I High Sensitivity < 3 L </=34 ng/L Total Protein 8.2 5.7-8.2 g/dL Albumin 4.9 H 3.2-4.8 g/dL Lipase 33 12-53 U/L Thyroid Stimulating Hormone (TSH) 2.13 0.55-4.78 uIU/mL Imaging: CT abdomen pelvis IMPRESSION: 1. Mucosal thickening throughout the left colon may represent segmental colitis consider follow-up 2. No free air or free fluid. 3. Gallbladder has been surgically removed. 4. No nephrolithiasis or hydronephrosis. Assessment: Abdominal pain Nausea and vomiting Possible GI bleed Possible colitis Plan: Discussed with Dr. Mat Cohen and Protonix Stool for C diff continue antibiotics Clear liquid diet NPO after clear liquid breakfast. We will re-evaluate patient, if symptoms persist possible EGD planned for tomorrow Thank you for the consult Date of Service: May 10, 2024 Billing Provider: GLENDA REDDY Common Visit Codes: CONSULT ONLY Consultation Codes: [id number] CONSULT <45MIN GLENDA REDDY May 10, 2024 14:20
--- NOTE | 2024-05-10 14:33 | DVH ---
CLINICAL INFORMATION: 23 years old, Female; billiary duct structural abnrmalities. Post cholecystec alisson. Rule out common bile duct obstruction. TECHNIQUE: 7.2 mCi of Choletec were administered intravenously. Images of the upper abdomen were ob tained at 1 minute intervals up to a total time of 30 minutes. COMPARISON: CT dated 05/09/2024. FINDINGS: There is prompt excretion of radiopharmaceutical into the common bile duct and small bowel . No evidence of common bile duct obstruction. IMPRESSION: No evidence of common bile duct obstruction.
[2024-05-10] MEDS: POTASSIUM EFFERVESENT TAB 25 MEQ PO ONE (15:18)
[2024-05-10] MEDS: SUCRALFATE 1 GM TAB PO ONE (15:19)
[2024-05-10] MEDS: FAMOTIDINE INJECTION 40 MG in SODIUM CHL 0.9% 100 ML IV SCH (15:19)
--- NOTE | 2024-05-10 17:55 | DVHPNRES ---
Progress Note Date Seen: May 10, 2024 Resident Creating Document: BLAYNE HAILE RESIDENT Medical Necessity Reason Pt with a Central, PICC or Fol: No Subjective Review of Systems 23-year-old female patient with past medical history of bronchial asthma, morbidly obese, history of drug abuse marijuana use (quit on July last year) who came to the emergency department with a chief complaint of abdominal pain in periumbilical area radiating to the epigastric area and the right leg for the past 10 days associated with nausea and vomiting , coffee-ground emesis 5 days ago, but yesterday was bright red. Patient reports she has been dealing with episodes of abdominal pain every other month, after an emergency cholecystectomy that was performed on [facility] in 2022 . She was told by the surgeon physician that he could be related with the and leaking from the biliary duct , related to a complication after the procedure. Patient reports being sexually active with her partner, hCG was negative. Patient reports no changes in dietary habits, she usually skip the breakfast but other than that she takes care of the diet. She denies any new bowel movement since the past 4 days, she denies loose stools, melena or red blood in stool. CT scan of the abdomen showed mucosal thickening throughout the left colon may represent segmental colitis. Patient was started on Zofran and Protonix, NPO after clear liquid breakfast. Possible endoscopy planned for tomorrow. Review of systems: Constitutional: No: Fever, Chills, Sweats, Weakness, Malaise, Other Eyes: No: Pain, Vision change, Conjunctivae inflammation, Eyelid inflammation, Other, Redness ENT: No: Ear pain, Ear discharge, Nose pain, Nose discharge, Nose congestion, Mouth pain, Mouth swelling, Throat pain, Throat swelling, Other Respiratory: No Wheezing, Hemoptysis, Pleuritic Pain, Sputum, Wheezing, Other Cardiovascular: No: Chest Pain, Palpitations, Orthopnea, Paroxysmal Noc. Dyspnea, Edema, Lt Headedness, Other Gastrointestinal: Yes: Abdominal pain no: Nausea, Vomiting, Abdominal Pain, Diarrhea, Constipation, Melena, Hematochezia, Other Musculoskeletal: No: other, neck pain, shoulder pain, arm pain, back pain, hand pain, leg pain, foot pain Neurological:; No: Weakness, Numbness, Incoordination, Change in speech, Confusion, Seizures Patient reports: No new complaints Changes from previous H/P or p: No Changes Objective vital signs Vital Sign Date Time Temp Pulse Resp B/P (MAP) Pulse Ox O2 Delivery O2 Flow Rate FiO2 05/10/24 16:38 98.1 98 17 142/89 (106) 94 98.1 05/09/24 23:28 Room Air* 0 21 Total Intake and Output 05/09/24 05/09/24 05/10/24 15:00 23:00 07:00 Intake Total 200 ml 0 ml Balance 200 ml 0 ml medications Current Medications Medications Dose Ordered Sig/Gómez Route Start Time Stop Time Status Last Admin Dose Admin Sodium Chloride 1,000 ml @ 75 mls/hr [id number] IV 05/09/24 21:30 05/09/24 21:30 75 MLS/HR Morphine Sulfate 2 mg Q4HPRN PRN IV 05/09/24 21:30 05/10/24 13:51 2 MG Ondansetron HCl 4 mg Q8HPRN PRN IV 05/09/24 21:30 Metronidazole 100 ml @ 100 mls/hr TID IV 05/09/24 22:00 05/10/24 06:00 100 MLS/HR Ciprofloxacin 200 ml @ 200 mls/hr BID IV 05/09/24 22:00 05/10/24 15:19 200 MLS/HR Famotidine 40 mg/ Sodium Chloride 104 ml @ 416 mls/hr DAILY IV 05/10/24 10:00 05/10/24 15:19 416 MLS/HR Sucralfate 1 gm QIDACHS PO 05/10/24 17:00 Examination Examination General Appearance: Morbidly obese, Alert, Oriented X3, Cooperative, No acute distress Respiratory: Clear to auscultation, Normal air movement Cardiovascular: Regular rate, Normal S1, Normal S2 Abdominal: Normal bowel sounds Extremities: No cyanosis, No edema, Normal pulses, No tenderness/swelling Skin: No rashes, No breakdown Neuro: Normal speech, Strength at 5/5 X4 ext, Normal tone, Sensation intact, Cranial nerves 3-12 NL, Reflexes 2+ Psych/Mental Status: Mental status NL, Mood NL laboratory and microbiology Laboratory Tests 05/10/24 11:00 05/10/24 05:41 Test 05/10/24 05:41 Range/Units Serum Glucose 90 74-106 mg/dL Problem List/Assessment/Plan Problem List/Assessment/Plan #Intractable abdominal pain and vomiting likely secondary due to colitis #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 -Zofran p.r.n. nausea and vomiting #Acute pancreatitis was ruled out, lipase within normal limits -lipase WNL #Segmental colitis based on CT scan of the abdomen -continue IV antibiotics #Chronic intermittent abdominal pain status post emergency cholecystectomy on 2022. -evaluation for possible postprocedural leakage was negative on HIDA scan. #Prediabetes hemoglobin A1c 5.9% #Morbid obesity BMI 52.8 Patient was counseled about lifestyle modifications, increased physical activity and make some dietary changes. #Hypokalemia -potassium 50 mEq effervescent p.o. Case discussed with Goals of care discussed with the patient for 22 minutes Code status: Full code Plan discussed with: Patient My Orders My Orders Orders - BLAYNE HAILE Procedure Category Date Status Time Nm Hida Scan NM 05/10/24 Resulted 12:49 * Gi [facility] CONS 05/10/24 Transmitted 12:49 Sucralfate Tab PHA 05/10/24 In Process (Carafate Tab) 17:00 Date of Service: May 10, 2024 Billing Provider: TARUN LARES MD Common Visit Codes: [id number] INP/OBS CARE(HIGH) BLAYNE HAILE May 10, 2024 17:55 TARUN LARES MD May 10, 2024 18:21
[2024-05-10] MEDS: SUCRALFATE 1 GM TAB PO SCH (18:02)
[2024-05-10] MEDS: PANTOPRAZOLE 40 MG/10 ML VIAL INJ IV ONE (22:02)
[2024-05-10] MEDS: PANTOPRAZOLE 40 MG/10 ML VIAL INJ IV SCH (22:06)
[2024-05-11] VITALS (8 sets, daily range): BP systolic 111–148; BP diastolic 64–90; PULSE 71–105; RESP 17–20; TEMP 36.6; O2SAT 93–96
[2024-05-11] MEDS: metroNIDAZOLE 500MG/100ML 100 ML IV SCH (03:00)
[2024-05-11] MEDS: CIPROFLOXACIN 400MG/200ML 200 ML IV SCH (06:00)
[2024-05-11] MEDS ORDERED: LIDOCAINE VISCOUS 2% 15ML UD ONE (08:22)
[2024-05-11 08:43] LABS: Basophils # (auto) 0 10 ^3/uL (0-0.2); Basophils % (auto) 0.4 % (0.0-2.0); Eosinophils # (auto) 0.1 10 ^3/uL (0-0.8); Eosinophils % (auto) 0.7 % (0.0-7.0); Hematocrit 38.7 % (36.0-46.0); Lymphocytes # (auto) 3.9 10 ^3/uL (0.4-5.4); Lymphocytes % (auto) 40.4 % (10.0-50.0); Mean Corpuscular Hemoglobin 23.9 pg (28.0-32.0); Mean Corpuscular Hgb Conc. 31.1 g/dL (32.0-36.0); Mean Corpuscular Volume 76.9 fL (80.0-100.0); Monocytes # (auto) 0.7 10 ^3/uL (0-1.3); Monocytes % (auto) 7.7 % (0.0-12.0); Neutrophils # (auto) 4.9 10 ^3/uL (1.6-8.6); Neutrophils % (auto) 50.8 % (37.0-80.0); Platelet Count (auto) 390 10^3/uL (140-450); Red Blood Cells 5.03 10^6/uL (4.0-5.20); Red Cell Distribution Width 17.4 % (11.8-14.3); White Blood Cell 9.7 10^3/uL (4.4-10.8)
[2024-05-11 08:44] LABS: Anion Gap 7 (5-15); Carbon Dioxide 28 mmol/L (20-31); Chloride 102 mmol/L (98-107); Sodium 137 mmol/L (136-145)
[2024-05-11 08:45] LABS: Calcium 9.6 mg/dL (8.7-10.4)
[2024-05-11 08:46] LABS: Potassium 3.2 mmol/L (3.5-5.1)
[2024-05-11 08:50] LABS: Glucose 96 mg/dL (74-106)
[2024-05-11 08:53] LABS: BUN/Creatinine Ratio 9.1 (10.0-20.0); Blood Urea Nitrogen < 5 mg/dL (9-23)
[2024-05-11] MEDS ORDERED: POTASSIUM EFFERVESENT TAB 25 MEQ PO ONE (09:00)
[2024-05-11] MEDS ORDERED: fentaNYL CITRATE 100 MCG/2 ML VL ONE (09:14)
[2024-05-11] MEDS ORDERED: MIDAZOLAM HCL 2MG/2ML 2ml VIAL (1mg/ml) ONE (09:14)
[2024-05-11 09:27] LABS: INR 1.06 (0.9-1.15); Prothrombin Time 11.2 sec (9.3-11.8)
[2024-05-11] MEDS ORDERED: PROPOFOL 10 MG/ML 20 ML IV ONE (09:36)
[2024-05-11] MEDS ORDERED: DexAMETHasone SOD PHOS 10MG/1ML VIAL INJ ONE (09:36)
--- NOTE | 2024-05-11 09:47 | DVHOP2 ---
Operative Report DATE OF OPERATION: 05/11/24 PROCEDURE: Upper Endoscopy with biopsy. PREOPERATIVE INDICATION: The patient is a 23 -year-old female undergoing endoscopy for nausea vomiting and epigastric pain POSTOPERATIVE DIAGNOSES: 1. 1 cm sliding-type hiatal hernia slightly irregular squamocolumnar junction minimal grade a erosive esophagitis 2. Mild gastritis PROCEDURE PERFORMED BY: Latia Rivero GI NURSE: Jacqui SCOPE: Olympus videoendoscope. ASA CLASS: 2 PRE OP MEDICATIONS: Mac celeste, Dr. Garcia PROCEDURE IN DETAIL: After obtaining an informed consent, the patient was placed on left lateral decubitus position. The patient was then sedated with the above medications. A bite block was placed between her teeth. The endoscope was then passed through the oropharynx, into the esophagus, and through the stomach and pylorus up to the second and third part of the duodenum. The endoscope was then withdrawn. The 2nd and 3rd part of the duodenum and the duodenal bulb were normal. There was good bile drainage. Duodenal biopsies were obtained. The pre-pyloric area antrum and body showed mild gastritis. On retroflexion the fundus and cardia were normal. Gastric biopsies were obtained. The endoscope was then withdrawn into the distal esophagus. Patient had a 1 cm sliding-type hiatal hernia with slightly irregular squamocolumnar junction and healing grade a erosive esophagitis with superficial distal esophageal ulcerations that were healing. GE junction biopsies were obtained. The remaining distal and proximal esophagus and oropharynx were unremarkable The patient tolerated the procedure well without difficulty. COMPLICATIONS : None SPECIMENS: Duodenal biopsies Gastric biopsies GE junction biopsies DISPOSITION: Transfer back to the floor Stable PLAN: 1. Await for biopsy result 2. Will place pt on Protonix 40 mg bid 3. Carafate 1 g p.o. twice a day 4. Resume full diet advance as tolerated 5. Outpatient follow up with me in 4-6 weeks to review results and discuss further management 6. Patient will be encouraged to discontinue marijuana as I believe she may have cyclical vomiting syndrome related to the same LATIA RIVERO MD May 11, 2024 09:46
[2024-05-11 10:09] LABS: % Iron Saturation 12.1 % (15-50)
[2024-05-11] MEDS ORDERED: PANT40TA2 PO (15:35)
[2024-05-11] MEDS ORDERED: SUCR1TAB31 OR (15:35)
--- NOTE | 2024-05-11 19:37 | DVHDSRES ---
Discharge Summary Date of Admission Resident Creating Document: BLAYNE HAILE RESIDENT May 09, 2024 at 20:55 Date of Discharge: May 11, 2024 Admitting Diagnosis Intractable abdominal pain Labs/Diagnostic Data: Laboratory Results Test 05/11/24 07:45 05/10/24 05:41 05/09/24 22:20 05/09/24 18:11 White Blood Count 9.7 10^3/uL (4.4-10.8) Red Blood Count 5.03 10^6/uL (4.0-5.20) Hemoglobin 12.0 g/dL (12.2-16.2) Hematocrit 38.7 % (36.0-46.0) Mean Corpuscular Volume 76.9 fL (80.0-100.0) Mean Corpuscular Hemoglobin 23.9 pg (28.0-32.0) Mean Corpuscular Hemoglobin Concent 31.1 g/dL (32.0-36.0) Red Cell Distribution Width 17.4 % (11.8-14.3) Platelet Count 390 10^3/uL (140-450) Mean Platelet Volume 7.9 fL (6.9-10.8) Neutrophils (%) (Auto) 50.8 % (37.0-80.0) Lymphocytes (%) (Auto) 40.4 % (10.0-50.0) Monocytes (%) (Auto) 7.7 % (0.0-12.0) Eosinophils (%) (Auto) 0.7 % (0.0-7.0) Basophils (%) (Auto) 0.4 % (0.0-2.0) Neutrophils # (Auto) 4.9 10 ^3/uL (1.6-8.6) Lymphocytes # (Auto) 3.9 10 ^3/uL (0.4-5.4) Monocytes # (Auto) 0.7 10 ^3/uL (0-1.3) Eosinophils # (Auto) 0.1 10 ^3/uL (0-0.8) Basophils # (Auto) 0 10 ^3/uL (0-0.2) Nucleated Red Blood Cells 0.0 % Prothrombin Time 11.2 sec (9.3-11.8) Prothrombin Time INR 1.06 (0.9-1.15) Sodium Level 137 mmol/L (136-145) Potassium Level 3.2 mmol/L (3.5-5.1) Chloride Level 102 mmol/L (98-107) Carbon Dioxide Level 28 mmol/L (20-31) Anion Gap 7 (5-15) Blood Urea Nitrogen < 5 mg/dL (9-23) Creatinine 0.55 mg/dL (0.550-1.02) Glomerular Filtration Rate Calc 130 mL/min (>90) BUN/Creatinine Ratio 9.1 (10.0-20.0) Serum Glucose 96 mg/dL (74-106) Calcium Level 9.6 mg/dL (8.7-10.4) Iron Level 42 ug/dL (50-170) Total Iron Binding Capacity 348 ug/dL (250-425) Percent Iron Saturation 12.1 % (15-50) Magnesium Level 2.1 mg/dL (1.6-2.6) Beta HCG, Quantitative 0.6 mIU/mL (1.5-4.2) Influenza Type A Antigen Negative (Negative) Influenza Type B Antigen Negative (Negative) SARS-CoV-2 Antigen (Rapid) Negative (NEGATIVE) Urine Color Yellow (Yellow) Urine Clarity Turbid (Clear) Urine pH 6.0 (5.0-9.0) Urine Specific [place] 1.017 (1.001-1.035) Urine Protein 1+ (Negative) Urine Ketones 1+ (Negative) Urine Blood Negative /uL (Negative) Urine Nitrite Negative (Negative) Urine Bilirubin Negative (Negative) Urine Urobilinogen Normal mg/dL (Negative) Urine Leukocyte Esterase 1+ /uL (Negative) Urine RBC 3 /hpf (0 - 4) Urine WBC 17 /hpf (0 - 5) Urine Squamous Epithelial Cells Mod /hpf (<5) Urine Bacteria Few /hpf (None Seen) Urine Hyaline Casts Few /lpf (0 - 2) Urine Mucus Few (None Seen) Urine Glucose Normal mg/dL (Normal) Urine Test Negative (Negative) Urine Opiates Screen Neg (NEGATIVE) Urine Fentanyl Screen Neg (NEGATIVE) Urine Barbiturates Screen Neg (NEGATIVE) Urine Phencyclidine Screen Neg (NEGATIVE) Urine Amphetamines Screen Neg (NEGATIVE) Urine Benzodiazepines Screen Neg (NEGATIVE) Urine Cocaine Screen Neg (NEGATIVE) Urine Cannabinoids Screen Pos (NEGATIVE) Test 05/09/24 18:08 Hemoglobin A1c 5.9 % A1C (<5.7) Lactic Acid Level 1.6 mmol/L (0.4-2.0) Total Bilirubin 0.6 mg/dL (0.2-1.0) Aspartate Amino Transferase (AST) 29 U/L (13-40) Alanine Aminotransferase (ALT) 43 U/L (7-40) Alkaline Phosphatase 87 U/L (46-116) Troponin I High Sensitivity < 3 ng/L (</=34) Total Protein 8.2 g/dL (5.7-8.2) Albumin 4.9 g/dL (3.2-4.8) Lipase 33 U/L (12-53) Thyroid Stimulating Hormone (TSH) 2.13 uIU/mL (0.55-4.78) Other Laboratory Tests 05/11/24 07:45 Brief Hx & Hospital Course: HPI: 23-year-old female patient with past medical history of bronchial asthma, morbidly obese, history of drug abuse marijuana use (quit on July last year) who came to the emergency department with a chief complaint of abdominal pain in periumbilical area radiating to the epigastric area and the right leg for the past 10 days associated with nausea and vomiting , coffee-ground emesis 5 days ago, but yesterday was bright red. Hospital course: Patient reports she has been dealing with episodes of abdominal pain every other month, after an emergency cholecystectomy that was performed on [facility] in 2022 . She was told by the surgeon physician that he could be related with the and leaking from the biliary duct , related to a complication after the procedure. HIDA scan was performed there was no leaking from the biliary system. Gastroenterology evaluated the patient, endoscopy was performed that showed 1 cm hiatal hernia with a erosive esophagitis and mild gastritis for which they recommended follow-up within 4-6 weeks and started her on Protonix and Zofran. CT scan of the abdomen was performed that showed mucosal thickening throughout the left colon may represent segmental colitis. Patient was tolerating well full liquid diet she was recommended to follow up with her primary care doctor and GI doctor and continue with prescribed medication. Disposition: Patient is stable for discharge to home Case discussed with Dr. Edwards Goals of care discussed with the patient for 20 minutes Code status: Full code Consults/Reason for consult GI: Chronic abdominal pain, acute gastritis, Radha-Lorenzo syndrome Operations or Procedures [address] [address] Ph: [phone] DIAGNOSTIC IMAGING Diagnostic Imaging Report : [id number] Signed PATIENT: LORETTA MENDIETA ACCT: [id number] UNIT: [id number] : 2000 LOC: ER ROOM / BED: / AGE / SEX: 23 / F ADM STATUS: REG ER SERVICE [id number] ORDERING PHYSICIAN: MORIAH HOGAN DO PROCEDURE(s): ABPLIV - CT AB PEL WITH IV CON ONLY REASON: abd pain ORDER NUMBER(s): [id number], ACCESSION NUMBER(s): [id number] Exam: CT CT AB PEL WITH IV CON ONLY History: abd pain Comparison Study: None available at time of dictation. Contrast: Type of contrast: Omnipaque 300 Contrast injected: 70 mL Contrast wasted: 0 TECHNIQUE: A digital 1st grade teacher image was obtained. During the uneventful, intravenous administration of contrast material, multislice data acquisition was obtained through the abdomen and pelvis. The data set was subsequently reconstructed into axial images. Images were reviewed on a work station using a combination of axial and multiplanar using a variety of window levels and settings. Radiation Dose Information: CT Dose: CTDI volume is 27.88 mGy. Dose-length product is 1606.41 mGy*cm FINDINGS: Lung Bases: No acute or significant lung base finding. Normal heart size. No pleural or pericardial effusion. Liver: The liver is normal in size. No focal lesions. Normal hepatic vascular enhancement. Gallbladder and Biliary Tree: Gallbladder has been surgically removed. Spleen: Unremarkable Pancreas: The pancreas is normal in appearance without focal lesions or abnormal enhancement. Adrenal Glands: Unremarkable Kidneys: Kidneys demonstrate normal symmetric enhancement without focal lesions, calculi or hydronephrosis. Bladder: Unremarkable Bowel: The stomach is grossly normal in appearance. Mucosal thickening throughout the descending colon can not exclude segmental colitis.. The appendix is not visualized; however, no secondary findings of acute appendicitis identified. Ascites: Absent Lymphadenopathy: No mesenteric, retroperitoneal or periportal lymphadenopathy. Abdominal Wall and Mesentery: Small ventral hernia containing fat (5.2 x 2.1 cm) Vasculature: The visualized abdominal aorta is normal in size and caliber. Abdominal and pelvic vessels demonstrate normal enhancement. Pelvic Organs: Unremarkable Musculoskeletal: No aggressive focal bony lesions, acute fractures or dislocation. Soft tissues: Unremarkable. IMPRESSION: 1. Mucosal thickening throughout the left colon may represent segmental colitis consider follow-up 2. No free air or free fluid. 3. Gallbladder has been surgically removed. 4. No nephrolithiasis or hydronephrosis. All CT scans at this medical facility are performed using dose modulation techniques as appropriate to a performed exam including the following: Automated exposure control was utilized; adjustment of the MA and/or KV according to patient size; and use of iterative reconstruction technique. ATED BY: KORI JOHNSON Jr., DO DICTATED DATE/TIME: 05/09/241949 SIGNED BY: KORI JOHNSON Jr., DO SIGNED DATE/TIME: 05/09/241949 CC: [place] [address] Ph: [phone] DIAGNOSTIC IMAGING Diagnostic Imaging Report : [id number] Signed PATIENT: LORETTA MENDIETA ACCT: [id number] UNIT: [id number] : 2000 LOC: OVERFLOW ROOM / BED: [address] [place] [address] AGE / SEX: 23 / F ADM STATUS: ADM IN SERVICE 172 ORDERING PHYSICIAN: MORIAH HOGAN DO PROCEDURE(s): CXRP - CHEST PORTABLE REASON: abd pain ORDER NUMBER(s): [id number], ACCESSION NUMBER(s): [id number] EXAMINATION: AP portable chest radiograph CLINICAL HISTORY: abd pain COMPARISON: None FINDINGS: Underpenetration secondary to patient body habitus. No dominant consolidations. No definite pleural effusions or pneumothorax. The cardiomediastinal silhouette appears within normal limits given technique. IMPRESSION: No acute cardiopulmonary findings as visualized. ATED BY: SAÚL AQUINO MD DICTATED DATE/TIME: 05/09/242152 SIGNED BY: SAÚL AQUINO MD SIGNED DATE/TIME: 05/09/242152 CC: [place] [address] Ph: [phone] DIAGNOSTIC IMAGING Diagnostic Imaging Report : [id number] Signed PATIENT: LORETTA MENDIETA ACCT: [id number] UNIT: [id number] : 2000 LOC: CENTRAL ROOM / BED: 0218 / A AGE / SEX: 23 / F ADM STATUS: ADM IN SERVICE [id number] ORDERING PHYSICIAN: BLAYNE HAILE RESIDENT PROCEDURE(s): GBNM - NM HIDA SCAN REASON: billiary duct structural abnrmalities ORDER NUMBER(s): [id number], ACCESSION NUMBER(s): [id number] CLINICAL INFORMATION: 23 years old, Female; billiary duct structural abnrmalities. Post cholecystectomy. Rule out common bile duct obstruction. TECHNIQUE: 7.2 mCi of Choletec were administered intravenously. Images of the upper abdomen were obtained at 1 minute intervals up to a total time of 30 minutes. COMPARISON: CT dated 05/09/2024. FINDINGS: There is prompt excretion of radiopharmaceutical into the common bile duct and small bowel. No evidence of common bile duct obstruction. IMPRESSION: No evidence of common bile duct obstruction. 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 Discharge Disposition: Home SNF Discharge Will this Physician continue t: No Discharge Instruct/Medications Diet: Cardiac 2g Na,low cholest Activity: No Restrictions, As Tolerated Follow Up/Referral: Follow up with PCP bruce 1 to 2 weeks Follow up with GI() within 4 to 6 weeks Medications: script to pharmacy Discharge Statement: "Patient was advised to return to the ER or call 911 if any headaches, dizziness, shortness of breath, chest pain, abdominal pain, bleeding, fevers, or worsening of medical condition. Patient was counseled about treatment plan, medications, possible side effects, patientverbalized understanding. All questions were answered to the best of my ability. 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 Date of Service: May 11, 2024 Billing Provider: TARUN EDWARDS MD Common Visit Codes: 14123-CKB/OBS DISCH DAY >30min BLAYNE HAILE RESIDENT May 11, 2024 19:37 TARUN EDWARDS MD May 13, 2024 18:06
[2024-05-11] MEDS ORDERED: PHENYLEPHRINE HCL 10 MG/ML VL IV ONE (21:01)
== END 2024-05-11 21:02 | disposition home or self-care (01) | DRG 720 ==
LOC: ER 16:58 → OVERFLOW 20:55 → CENTRAL 23:23
PROVIDERS: ADMIT Internal Medicine Geriatric Medicine; ATTEND Internal Medicine Geriatric Medicine
PROC: 0DB68ZX Excision of Stomach, Via Natural or Artificial Opening Endoscopic, Diagnostic (ICD-10-PCS; 2024-05-11)
PROC: 0DB48ZX Excision of Esophagogastric Junction, Via Natural or Artificial Opening Endoscopic, Diagnostic (ICD-10-PCS; 2024-05-11)
PROC: 0DB98ZX Excision of Duodenum, Via Natural or Artificial Opening Endoscopic, Diagnostic (ICD-10-PCS; principal; 2024-05-11 09:19)
DX: A41.9 Sepsis, unspecified organism (principal); K22.11 Ulcer of esophagus with bleeding; K29.01 Acute gastritis with bleeding; A09 Infectious gastroenteritis and colitis, unspecified; Z68.43 Body mass index [BMI] 50.0-59.9, adult; E66.01 Morbid (severe) obesity due to excess calories; Z20.822 Contact with and (suspected) exposure to COVID-19; E87.6 Hypokalemia; J45.909 Unspecified asthma, uncomplicated; R73.03 Prediabetes; K21.9 Gastro-esophageal reflux disease without esophagitis; K44.9 Diaphragmatic hernia without obstruction or gangrene; F12.90 Cannabis use, unspecified, uncomplicated; Z90.49 Acquired absence of other specified parts of digestive tract; Z88.0 Allergy status to penicillin; Z88.6 Allergy status to analgesic agent; Z80.0 Family history of malignant neoplasm of digestive organs; Z82.49 Family history of ischemic heart disease and other diseases of the circulatory system
CPT/HCPCS: 36415; 71045; 74177; 78226; 80048; 80053; 80307; 81001; 81025; 83036; 83540; 83550; 83605; 83690; 83735; 84132; 84443; 84484; 84702; 85025; 85610; 87426; 87804; G0378; J1100; J2250; J2470; J2704; J3490